=== PATIENT | male | born 1940 | race Caucasian/White ===

== ENCOUNTER 2019-08-25 13:58 | Emergency (ER) | payer MEDICARE ==
[~2019-08-25] VITALS: Ht 180.3 cm; Wt 103.1 kg
--- NOTE | 2019-08-25 14:03 | ED General ---
General Stated Complaint: SYNCOPE History of Present Illness Date Seen by Provider: Aug 25, 2019 Time Seen by Provider: 14:02 Initial Comments Patient is a 79-year-old male with past medical history significant for hypertension and coronary artery disease. He comes to the ER today after having a syncopal episode at his doctor's office. The patient was having blood drawn at the doctor's office. Following this, he had a syncopal or near-syncopal episode. Patient states he has been having symptoms similar to this over the last 6 months. His symptoms are notably associated with position changes, particularly when he bends over and then stands back upright, he feels lightheaded and sometimes passes out. Today, he had a similar episode. He did not have chest pain, palpitations, shortness of breath. He states he does feel weak generally but has no other acute complaints. He has been eating and drinking normally. Denies recent illness. No fever, chills, cough. He was presenting to his physician's office today for evaluation of these symptoms and was referred to the emergency department after having an episode in the office. Allergies and Home Medications Allergies Coded Allergies: No Known Drug Allergies (Unverified , 08/25/19) Patient Home Medication List Home Medication List Reviewed: Yes Review of Systems Review of Systems Constitutional: weakness EENTM: no symptoms reported Respiratory: no symptoms reported Cardiovascular: syncope Gastrointestinal: no symptoms reported Genitourinary: no symptoms reported Musculoskeletal: no symptoms reported Skin: no symptoms reported All Other Systems Reviewed Negative Unless Noted: Yes Past Gtxtrxa-Dyoyyn-Ksbwky Hx Patient Social History Recent Foreign Travel: Yes Physical Exam Vital Signs Vital Signs - First Documented 08/25/19 14:00 Temp 35.9 Pulse 65 Resp 18 B/P (MAP) 128/67 (87) Pulse Ox 95 O2 Delivery Nasal Cannula O2 Flow Rate 2.00 Capillary Refill : Height, Weight, BMI Height: '" Weight: lbs. oz. kg; BMI Method: General Appearance: No Apparent Distress, WD/WN Eyes: Bilateral Eye Normal Inspection, Bilateral Eye PERRL HEENT: PERRL/EOMI, TMs Normal, Normal ENT Inspection Neck: Full Range of Motion, Non Tender, Supple Respiratory: Chest Non Tender, Lungs Clear, Normal Breath Sounds, Other (healed thoracotomy incision over sternum) Cardiovascular: Regular Rate, Rhythm, No Edema, No JVD, No Murmur Gastrointestinal: Normal Bowel Sounds, Non Tender, Soft Neurologic/Psychiatric: Alert, Oriented x3, Normal Mood/Affect, letter carrier II-XII Norm as Tested Skin: Normal Color, Warm/Dry Progress/Results/Core Measures Suspected Sepsis SIRS Temperature: Pulse: Respiratory Rate: Laboratory Tests 08/25/19 14:07: White Blood Count 9.3 Blood Pressure / Mean: Laboratory Tests 08/25/19 14:07: Creatinine 0.87, Platelet Count 246 Results/Orders Lab Results Laboratory Tests Test 08/25/19 14:07 08/25/19 15:08 Range/Units White Blood Count 9.3 4.3-11.0 10^3/uL Red Blood Count 4.83 4.35-5.85 10^6/uL Hemoglobin 14.6 13.3-17.7 G/DL Hematocrit 43 40-54 % Mean Corpuscular Volume 89 80-99 FL Mean Corpuscular Hemoglobin 30 25-34 PG Mean Corpuscular Hemoglobin Concent 34 32-36 G/DL Red Cell Distribution Width 12.9 10.0-14.5 % Platelet Count 246 130-400 10^3/uL Mean Platelet Volume 10.1 7.4-10.4 FL Neutrophils (%) (Auto) 65 42-75 % Lymphocytes (%) (Auto) 24 12-44 % Monocytes (%) (Auto) 7 0-12 % Eosinophils (%) (Auto) 3 0-10 % Basophils (%) (Auto) 1 0-10 % Neutrophils # (Auto) 6.0 1.8-7.8 X 10^3 Lymphocytes # (Auto) 2.2 1.0-4.0 X 10^3 Monocytes # (Auto) 0.7 0.0-1.0 X 10^3 Eosinophils # (Auto) 0.2 0.0-0.3 10^3/uL Basophils # (Auto) 0.1 0.0-0.1 10^3/uL Neutrophils % (Manual) 58 % Lymphocytes % (Manual) 21 % Monocytes % (Manual) 9 % Eosinophils % (Manual) 2 % Basophils % (Manual) 1 % Band Neutrophils 6 % Atypical Lymphocytes % Reactive Lymphocytes 3 % Blood Morphology Comment NORMAL Sodium Level 136 135-145 MMOL/L Potassium Level 4.2 3.6-5.0 MMOL/L Chloride Level 99 98-107 MMOL/L Carbon Dioxide Level 23 21-32 MMOL/L Anion Gap 14 5-14 MMOL/L Blood Urea Nitrogen 14 7-18 MG/DL Creatinine 0.87 0.60-1.30 MG/DL Estimat Glomerular Filtration Rate > 60 BUN/Creatinine Ratio 16 Glucose Level 142 H 70-105 MG/DL Calcium Level 9.0 8.5-10.1 MG/DL Troponin I < 0.30 <0.30 NG/ML Pro-B-Type Natriuretic Peptide 27.6 <75.0 PG/ML Urine Color YELLOW Urine Clarity CLEAR Urine pH 6.0 5-9 Urine Specific [place] 1.010 L 1.016-1.022 Urine Protein NEGATIVE NEGATIVE Urine Glucose (UA) NEGATIVE NEGATIVE Urine Ketones NEGATIVE NEGATIVE Urine Nitrite NEGATIVE NEGATIVE Urine Bilirubin NEGATIVE NEGATIVE Urine Urobilinogen 0.2 < = 1.0 MG/DL Urine Leukocyte Esterase NEGATIVE NEGATIVE Urine RBC (Auto) NEGATIVE NEGATIVE Urine RBC NONE /HPF Urine WBC NONE /HPF Urine Squamous Epithelial Cells RARE /HPF Urine Renal Epithelial Cells NONE /HPF Urine Crystals NONE /LPF Urine Bacteria NEGATIVE /HPF Urine Casts PRESENT /LPF Urine Hyaline Casts RARE /LPF Urine Mucus SMALL H /LPF Urine Culture Indicated NO Micro Results Microbiology 08/25/19 Influenza Types A,B Antigen (JUDY) - Final, Complete My Orders Orders - MIRELLA JEROME DO Ed Iv/Invasive Line Start (08/25/19 14:06) Cbc And Manual Diff (08/25/19 14:06) Basic Metabolic Panel (08/25/19 14:06) Troponin I Fs (08/25/19 14:06) Probnp Fs (08/25/19 14:06) Ekg Tracing (08/25/19 14:06) Ct Head Wo (08/25/19 14:06) Influenza A And B Antigens (08/25/19 14:06) Chest 1 View Ap/Pa Only (08/25/19 14:15) Ns Iv 1000 Ml (Sodium Chloride 0.9%) (08/25/19 14:30) Urinalysis (08/25/19 14:51) Ondansetron Injection (Zofran Injectio (08/25/19 15:15) Hemoglobin A1c (08/25/19 15:28) Lipid Panel (08/25/19 15:28) Thyroid Stimulating Hormone (08/25/19 15:28) Psa Screen (08/25/19 15:28) Medications Given in ED Current Medications Medications Dose Ordered Sig/Montrell Route Start Time Stop Time Status Last Admin Dose Admin Ondansetron HCl 4 mg ONCE ONCE IVP 08/25/19 15:15 08/25/19 15:16 DC 08/25/19 15:15 4 MG Vital Signs/I&O 08/25/19 14:00 Temp 35.9 Pulse 65 Resp 18 B/P (MAP) 128/67 (87) Pulse Ox 95 O2 Delivery Nasal Cannula O2 Flow Rate 2.00 Capillary Refill : Progress Note : Time: 14:02 Progress Note Patient is seen and examined on arrival to his room. No acute distress and no acute complaints on arrival other than feeling general weakness. No n/v, chest pain, palpitations. He endorses that he has been baseline health in recent weeks other than having some syncopal and near syncopal episodes described above. Physical exam unremarkable for focal neuro findings. Will give NS bolus, check EKG, labs, CT head. 15:40: All results are reviewed and discussed with the patient and his family. All of their questions are answered. The patient was stable in the emergency department. He underwent orthostatic vital signs which did not reveal significant increase in heart rate or decrease in systolic blood pressure. He was also not symptomatic during this procedure. He was given 1 L of normal sa line in the ER and 1 dose of Zofran. His symptoms were entirely resolved at the time of discharge. Laboratory studies did not reveal acute findings. No anemia. Hemoglobin was normal range. Troponin was not elevated. EKG was nonacute. CT scan of the head was completed and was unremarkable for acute pathologies. Given that the patient did not have labs collected at primary care, and the fact that he continues to be in a fasting state, labs were drawn for routine follow-up purposes only and not to affect his ER visit or care. I contacted his primary care physician office and notified them of A1c, lipid panel, PSA, TSH which were placed as orders near the end of the ED visit. These were completed as a courtesy to the primary care physician and so they may be available for follow- up purposes. Patient is discharged home. This is his desire. Given his history of feeling dizzy and some syncopal episodes at home over the last several weeks I did offer the patient the opportunity to pursue inpatient cardiology evaluati on and further workup for his symptoms but he declines at this time. I think based on his workup today, the patient is stable for discharge home with follow- up at his primary cardiology office. He was encouraged to come back to the emergency department for any new or worsening symptoms. ECG Initial ECG Impression Date: Aug 25, 2019 Initial ECG Impression Time: 14:20 Initial ECG Rate: 68 Initial ECG Rhythm: Normal Sinus Departure Impression Primary Impression: Syncope Disposition: 01 HOME, SELF-CARE Condition: Improved Departure-Patient Inst. Referrals: DESTIN TOLEDO DO (PCP) Primary Care Physician MIRELLA JEROME DO Aug 25, 2019 14:03
[2019-08-25] MEDS ORDERED: NS IV 1000 ML 1,000 ML IV SCH (14:30)
[2019-08-25 14:42] LABS: BASOPHILS % (AUTO) 1 % (0-10); EOSINOPHILS % (AUTO) 3 % (0-10); HEMATOCRIT 43 % (40-54); HEMOGLOBIN 14.6 G/DL (13.3-17.7); LYMPHOCYTES # (AUTO) 2.2 X 10^3 (1.0-4.0); LYMPHOCYTES % (AUTO) 24 % (12-44); MEAN CORPUSCULAR HEMOGLOBIN 30 PG (25-34); MEAN CORPUSCULAR HGB CONC 34 G/DL (32-36); MEAN CORPUSCULAR VOLUME 89 FL (80-99); MEAN PLATELET VOLUME 10.1 FL (7.4-10.4); MONOCYTES % (AUTO) 7 % (0-12); NEUTROPHILS % (AUTO) 65 % (42-75); PLATELET COUNT 246 10^3/uL (130-400); RED CELL DISTRIBUTION WIDTH 12.9 % (10.0-14.5); WHITE BLOOD COUNT 9.3 10^3/uL (4.3-11.0)
[2019-08-25 14:43] LABS: BAND NEUTROPHILS 6 %; BASOPHILS # (AUTO) 0.1 10^3/uL (0.0-0.1); BASOPHILS % (MANUAL) 1 %; EOSINOPHILS # (AUTO) 0.2 10^3/uL (0.0-0.3); EOSINOPHILS % (MANUAL) 2 %; MONOCYTES # (AUTO) 0.7 X 10^3 (0.0-1.0); MONOCYTES % (MANUAL) 9 %; NEUTROPHILS % (MANUAL) 58 %
[2019-08-25 14:44] LABS: LYMPHOCYTES % (MANUAL) 21 %; RBC MORPH NORMAL; REACTIVE LYMPHOCYTES 3 %
[2019-08-25 14:45] VITALS: BP_SYST 124; BP_SYST 135; BP_SYST 139; BP_DIAS 65; BP_DIAS 67; BP_DIAS 68
--- NOTE | 2019-08-25 14:49 | Diagnostic Imaging Report ---
PROCEDURE: CT head without contrast. TECHNIQUE: Multiple contiguous axial images were obtained through the brain without the use of intravenous contrast. Auto Exposure Controls were utilized during the CT exam to meet ALARA standards for radiation dose reduction. INDICATION: Syncope. COMPARISON: No prior studies are available for comparison. FINDINGS: The ventricles and sulci are consistent with the patient's age. No sulcal effacement or midline shift is detected. No acute intra-axial or extra-axial hemorrhage is detected. Cisterns are patent. Visualized paranasal sinuses are clear. IMPRESSION: No acute intracranial process is detected. Dictated by: Dictated on workstation # [id number]
--- NOTE | 2019-08-25 14:49 | Diagnostic Imaging Report ---
INDICATION: Syncope. FINDINGS: The heart size is normal. 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 Lungs are clear. There is no pleural effusion or pneumothorax. Mediastinum is unremarkable. IMPRESSION: No acute cardiopulmonary abnormality. Dictated by: Dictated on workstation # [id number]
[2019-08-25 14:53] LABS: CARBON DIOXIDE 23 MMOL/L (21-32); CHLORIDE 99 MMOL/L (98-107); POTASSIUM 4.2 MMOL/L (3.6-5.0); SODIUM 136 MMOL/L (135-145)
[2019-08-25 14:54] LABS: BUN/CREATININE RATIO 16; CREATININE SERUM 0.87 MG/DL (0.60-1.30); GFR ESTIMATED > 60; GLUCOSE 142 MG/DL (70-105)
[2019-08-25] MEDS ORDERED: ONDANSETRON 4 MG/2 ML (SDV) Z0FRAN IVP ONE (15:15)
[2019-08-25 15:23] LABS: CLARITY,URINE CLEAR; COLOR,URINE YELLOW; GLUCOSE, URINE (UA) NEGATIVE (NEGATIVE); PROTEIN,URINE NEGATIVE (NEGATIVE)
[2019-08-25 15:24] LABS: BACTERIA,URINE NEGATIVE /HPF; BILIRUBIN,URINE NEGATIVE (NEGATIVE); HYALINE CASTS, URINE RARE /LPF; KETONES,URINE NEGATIVE (NEGATIVE); LEUKOCYTE ESTERASE ,URINE NEGATIVE (NEGATIVE); NITRITE,URINE NEGATIVE (NEGATIVE); SQUAMOUS EPITHELIAL CELL,UR RARE /HPF
[2019-08-25 15:48] VITALS: BP 121/66
== END 2019-08-25 15:48 | disposition home or self-care (01) ==
LOC: EDUNIT# 13:58 → ER FS 14:01
DX: R55 Syncope and collapse (principal); I10 Essential (primary) hypertension; I25.10 Atherosclerotic heart disease of native coronary artery without angina pectoris
CPT/HCPCS: 36415; 70450; 71045; 80048; 80061; 81000; 83036; 83880; 84153; 84443; 84484; 85007; 85027; 87804; 93005; 96361; 96374